=== PATIENT | male | born 1990 | race Caucasian/White ===

== ENCOUNTER → 2016-07-14 | Outpatient (CLI) | payer OTHER ==
[~2016-07-14] MED LIST: RANITIDINE HCL150 M1 PO
--- NOTE | ~2016-07-14 | US6 ---
[facility] A Service of [facility] RADIOLOGY TEXT RESULTS PATIENT: TOSHIA NICOLE LOCATION: [facility] : [birth year] UNIT #: [id number] AGE: [address]: Arturo Smith MD SEX: M ORDER DR: [id number] [address] [address] [id number] O MR#: [id number] Acc #: [id number] NAME: TOSHIA NICOLE : 1990 SEX: M STUDY DATE/TIME: 07/14/2016 11:17 UNIT: [facility]US ROOM: STUDY DESCRIPTION: US Abdominal Limited Attending Physician: Arturo Smith M.D. Referring Physician: Arturo Smith M.D. Ordering Physician: Arturo Smith M.D. Primary Care Physician: Arturo Smith M.D. MEDICAL IMAGING REPORT This report is preliminary unless electronic signature is present EXAM Right upper quadrant ultrasound. DATE OF EXAM 07/14/2016 INDICATIONS Nausea for 1 year, worsening symptoms over the past year. Right upper quadrant pain. TECHNIQUE Sonographic imaging of the right upper quadrant was performed. COMPARISON No comparisons. FINDINGS The pancreas is not well visualized or assessed. Visualized aspects are unremarkable. Survey images of the liver are unremarkable. The gallbladder sonographically unremarkable. No shadowing stone. No sonographic Gerber's sign was described. Right kidney nonobstructed and measures 10.7 cm long axis. Extrahepatic common bile duct measures 4 mm. IMPRESSION 1. Negative right upper quadrant ultrasound. Limited evaluation of the pancreas. Dictated by... Barak Harley M.D. THIS IS AN ELECTRONICALLY VERIFIED REPORT [facility] A Service [facility] RADIOLOGY TEXT RESULTS PATIENT: TOSHIA NICOLE LOCATION: [facility] : [birth year] UNIT #: [id number] AGE: [address]: Arturo Smith MD SEX: M ORDER DR: Barak Harley M.D. at 07/14/2016 5:00 PM Danika TD: 07/14/2016 15:34 JOB #: [id number] MEDICAL IMAGING REPORT Page 1 of 1 COPY
[2016-07-14 10:54] LABS: HEMATOCRIT 47.9 % (38.0-50.0); HEMOGLOBIN 15.9 gm/dL (13.0-16.0); MEAN CELL VOLUME 94.5 FL (83-96); MEAN CORPUSCULAR HEMOGLOBIN 31.4 PG (28-34); MEAN CORPUSCULAR HGB CONC 33.2 g/dL (30-36); MEAN PLATELET VOLUME 7.9 FL (6.5-11.5); RED BLOOD COUNT 5.07 X10e (3.90-5.60); RED CELL DISTRIBUTION WIDTH 13.6 % (11.0-15.5); WHITE BLOOD COUNT 10.1 X10e3 (4.0-10.5)
[2016-07-14 11:17] LABS: ALBUMIN SERUM 4.4 g/dL (3.5-5.0); BILIRUBIN,TOTAL 0.7 mg/dL (0.2-2.0); CALCIUM SERUM 9.5 mg/dL (8.4-10.2); GLOM FILT RATE Estimated 103.4 mL/min (>60); POTASSIUM 4.8 mmol/L (3.5-5.1); PROTEIN TOTAL SERUM 7.4 g/dL (6.0-8.3)
== END | disposition home or self-care (01) ==
LOC: CGUS 10:30
PROVIDERS: Internal Medicine
DX: R10.11 Right upper quadrant pain (principal); R10.13 Epigastric pain
CPT/HCPCS: 36415; 76705; 80053; 82150; 83690; 85027

== ENCOUNTER → 2016-08-02 | Day surgery (SDC) | payer OTHER ==
--- NOTE | ~2016-08-02 | OR ---
Unit #: [id number] #: [id number] Patient: TOSHIA NICOLE [id number] [address] [address] [id number] O MR#: [id number] NAME: TOSHIA NICOLE ROOM: Date of Procedure: 08/02/2016 Admission Date: 08/02/2016 Surgeon: Robbi Montana III, M.D. : 1990 Attending Physician: Robbi Montana III, M.D. Primary Care Physician: Arturo Smith M.D. OPERATIVE REPORT PREOPERATIVE DIAGNOSIS Pilonidal cyst. POSTOPERATIVE DIAGNOSIS Pilonidal cyst. PROCEDURE PERFORMED Pilonidal cystectomy. ANESTHESIA General. SPECIMEN Tissue to Pathology. COMPLICATIONS None apparent. ESTIMATED BLOOD LOSS Minimal. INDICATIONS FOR PROCEDURE This is a 26-year-old gentleman who has had some chronic issues with pilonidal cyst. It was currently not infected. He is here today for excision. DESCRIPTION OF PROCEDURE After consent was obtained, the patient was brought to the operating room and placed in the supine position. General anesthetic was administered. He was then placed comfortably in the prone position. We prepped and draped his sacral region in standard surgical fashion. I made an elliptical incision that was approximately 2 cm wide and 6 cm in length around the small sinus tracts overlying the sacrum. I then dissected this all the way down to the sacral fascia. Next, I achieved good hemostasis and irrigated the wound. I closed the deep layer with interrupted 0 Vicryl suture. The intermediate layer was closed with interrupted 2-0 Vicryl suture, and the skin edges were reapproximated with interrupted 3-0 nylon vertical mattress sutures. Bacitracin and sterile dressing were then applied. The patient tolerated the procedure without any problems and returned to recovery room in stable condition. Unit #: [id number] #: [id number] Patient: TOSHIA NICOLE Dictated by... Robbi Montana III, M.D. VCL/modl TD: 08/03/2016 07:12 JOB #: [id number] CC: Manuel Caputo Jr., [email or web address]. OPERATIVE REPORT Page 1 of 1 X Robbi Montana III, MD PROCEDURE OPERATIVE NOTE
== END | disposition home or self-care (01) ==
LOC: CSUR 07:30
DX: L05.01 Pilonidal cyst with abscess (principal); K21.9 Gastro-esophageal reflux disease without esophagitis; F17.210 Nicotine dependence, cigarettes, uncomplicated; Z79.899 Other long term (current) drug therapy; Z98.890 Other specified postprocedural states
CPT/HCPCS: 88304; J0330; J1170; J2250; J2405; J3010; J3370